=== PATIENT | female | born 1970 | race Caucasian/White ===

== ENCOUNTER 2019-02-03 10:03 | Emergency (ER) | payer SELFPAY ==
[~2019-02-03] VITALS: Ht 160 cm; Wt 81.0 kg
[~2019-02-03 10:03] MED LIST: BACTDS PO; IBUP-1542 PO; SULF1TAB31 PO
[2019-02-03 10:05] VITALS: Ht 160 cm; Wt 81.0 kg
[2019-02-03] MEDS ORDERED: HYDROCODONE/APAP (5/325) TAB PO STA (10:58)
[2019-02-03] MEDS ORDERED: LIDOCAINE 1% (MDV) 10 ML INJ INJ STA (10:58)
[2019-02-03] MEDS ORDERED: LIDOCAINE 1% (MDV) 20 ML INJ SC ONE (11:30)
[2019-02-03 12:09] VITALS: BP 125/82; PULSE 66; RESP 17
== END 2019-02-03 12:10 | disposition home or self-care (01) ==
LOC: FTE 10:03
DX: N75.1 Abscess of Bartholin's gland (principal)